=== PATIENT | male | born 1950 | race Caucasian/White ===

== ENCOUNTER → 2023-06-15 08:34 | Outpatient (CLI) | payer MEDICARE, OTHER, SELFPAY ==
--- NOTE | 2023-06-15 | DI.NM.S_ITS ---
PROCEDURE: NM BONE SCAN WHOLE BODY RADIOPHARMACEUTICAL: 20.7 mCi Tc-99m MDP IV. INDICATIONS: KIDNEY CANCER, STAGING TECHNIQUE: Delayed whole-body scintigrams were obtained approximately 3-4 hours after intravenous injection of radiotracer. Anterior and posterior views were acquired from vertex to feet. Additional left and right oblique views of the thorax and were obtained. COMPARISON: None. FINDINGS: No areas of relative intense radiotracer uptake identified that would be suspicious for osseous metastatic disease. Mild increased radiotracer uptake identified in the shoulders in the lumbar spine compatible with osteoarthritis. No areas of osteopenia identified. No abnormal soft tissue uptake. Activity in the kidneys is normal and symmetric. IMPRESSION: No scintigraphic evidence of osseous metastatic disease. Dictated by: Gi Hargrove MD, PhD on 06/15/2023 at 12:58 Approved by: Gi Hargrove MD, PhD on 06/15/2023 at 13:00
--- NOTE | 2023-06-15 08:40 | DI.CT.S_ITS ---
PROCEDURE: CT PELVIS W CON INDICATIONS: KIDNEY CANCER TECHNIQUE: After the administration of oral contrast and intravenous contrast, 5 mm thick sections acquired from the iliac crests to the symphysis. 5 mm thick coronal and sagittal reformats were acquired. For radiation dose reduction, the following was used: automated exposure control, adjustment of mA and/or kV according to patient size. COMPARISON: Outside Facility, , CT ABDOMEN W/WO CONTRAST, 05/25/2023, 11:30. [facility], [place], [place] BONE SCAN WHOLE BODY, 06/15/2023, 9:23. FINDINGS: Peritoneum and bowel: Visualized large and small bowel is non-dilated. No free air or free fluid. Genitourinary: Bladder wall thickness is normal. Nodes and vessels: No iliac, pelvic, or inguinal adenopathy. Iliac vessels demonstrate normal size and enhancement. Bones: No suspicious bony lesions. IMPRESSION: No evidence of metastatic disease identified within the pelvis. Dictated by: Oleksandr Zhang M.D. on 06/15/2023 at 16:29 Approved by: Oleksandr Zhang M.D. on 06/15/2023 at 16:37
--- NOTE | 2023-06-15 08:40 | DI.CT.S_ITS ---
PROCEDURE: CT CHEST W CON INDICATIONS: KIDNEY CANCER TECHNIQUE: After the administration of intravenous contrast, 5 mm thick sections acquired from the pulmonary apices to the posterior costophrenic angles. 1 mm axial lung, 5 mm thick coronal and sagittal reformats and 7 mm axial MIP were acquired. For radiation dose reduction, the following was used: automated exposure control, adjustment of mA and/or kV according to patient size. COMPARISON: None available. FINDINGS: Image quality: Excellent. Lungs and pleura: There are multiple small right lung nodules. Reference nodules are listed in the following: Nodule 1: 3 mm; right upper lobe; series 3, image 76. Nodule 2: 2 mm; right upper lobe; series 3, image 91. Nodule 3: 3 mm; right upper lobe; series 3, image 102. Nodule 4: 3 mm; right lower lobe; series 3, image 241. Nodule 4: 3 mm; right lower lobe; series 3, image 265. There is small left pleural effusion. Left subpleural densities are may be infiltrate or atelectasis. No pleural effusions or pneumothorax. Central and peripheral airways are patent and normal in caliber. Mediastinum: Heart size is normal. No pericardial effusion. No mediastinal or hilar adenopathy by size criteria. Thoracic aorta and central pulmonary arteries are normal in size. Esophagus is normal in caliber. Small hiatal hernia. Bones and chest wall: No suspicious bony lesions. No vertebral body compression fractures. No axillary or supraclavicular adenopathy by size criteria. Right thyroid lobe is normal. Left thyroid lobe is absent. Abdomen: Partial visualization of a 1.2 cm cyst in the superior pole of the right kidney. There is a 0.8 cm splenic artery aneurysm. IMPRESSION: 1. Small subcentimeter right lung nodules are present, most likely inflammatory or infectious in etiology. Consider a follow-up CT in 3-6 months. 2. Small left pleural effusion with left basilar infiltrate or atelectasis. 3. No lymphadenopathy in thorax. 4. Small hiatal hernia. 5. A 0.8 cm splenic artery aneurysm. Dictated by: Ora Young M.D. on 06/15/2023 at 10:20 Approved by: Ora Young M.D. on 06/15/2023 at 10:32
== END ==
PROVIDERS: PCP Family Medicine; Referring Provider Internal Medicine Hematology & Oncology; Visit Provider Internal Medicine Hematology & Oncology
DX: N28.89 Other specified disorders of kidney and ureter (principal); I72.8 Aneurysm of other specified arteries; R91.8 Other nonspecific abnormal finding of lung field; J90 Pleural effusion, not elsewhere classified; K44.9 Diaphragmatic hernia without obstruction or gangrene
CPT/HCPCS: 71260; 72193; 78306; A9503; Q9967